=== PATIENT | male | born 1990 | race Caucasian/White ===

== ENCOUNTER 2019-07-28 10:29 | Emergency (ER) | payer BC, SELFPAY ==
[2019-07-28 12:52] LABS: Absolute Lymphocytes (CBC) 1.3 K/uL (0.7-4.9); Basophils % 0.6 % (0-1.3); Hematocrit 48.5 % (39.6-49.0); Lymphocytes % 15.2 % (15.3-44.8); RBC Red Blood Cell Count 5.21 M/uL (4.33-5.43)
[2019-07-28 13:02] LABS: BUN Blood Urea Nitrogen 11 mg/dL (7-18); Bicarbonate 27 mmol/L (21-32); Glucose Level 108 mg/dL (74-106); Potassium 3.9 mmol/L (3.5-5.1); Sodium Level 140 mmol/L (136-145)
[2019-07-28 13:04] LABS: Protime INR 1.02
--- NOTE | 2019-07-28 13:25 | ER ---
Nurse's Notes [facility] Name: Rubén Shaw Age: 29 yrs Sex: Male : 1990 Arrival Date: 07/28/2019 Time: 10:41 Bed 9 Private MD: Diagnosis: Other idiopathic peripheral autonomic neuropathy;Alcohol abuse;Alcohol abuse with intoxication;Alcohol abuse with other alcohol-induced disorder Presentation: 07/28 10:59 Presenting complaint: Patient states: malu feet numb up to doan, happens intermittently iw since a couple months ago, this episode started this morning, feet feel asleep and cold, episodes usually last about 12 hours, denies hx of diabetes. Transition of care: patient was not received from another setting of care. Onset of symptoms was May 2019. Risk Assessment: Do you want to hurt yourself or someone else? Patient reports no desire to harm self or others. Initial Sepsis Screen: Does the patient meet any 2 criteria? No. Patient's initial sepsis screen is negative. Does the patient have a suspected source of infection? No. Patient's initial sepsis screen is negative. Care prior to arrival: None. 10:59 Method Of Arrival: Ambulatory iw 10:59 Acuity: TIN 3 iw Triage Assessment: 13:45 General: Appears in no apparent distress. Behavior is calm, cooperative. iw Historical: - Allergies: 11:02 No Known Allergies; iw - Home Meds: 11:02 None [Active]; iw - PMHx: 11:02 None; iw - PSHx: 11:02 None; iw - Immunization history:: Adult Immunizations not up to date. - Social history:: Smoking status: Patient uses tobacco products, smokes one pack cigarettes per day. - Ebola Screening: : Patient negative for fever greater than or equal to 101.5 degrees Fahrenheit, and additional compatible Ebola Virus Disease symptoms Patient denies exposure to infectious person Patient denies travel to an Ebola-affected area in the 21 days before illness onset No symptoms or risks identified at this time. Screenin:45 Abuse screen: Denies threats or abuse. Denies injuries from another. Nutritional iw screening: No deficits noted. Tuberculosis screening: No symptoms or risk factors identified. Fall Risk IV access (20 points). Assessment: 11:00 General: Appears in no apparent distress. Behavior is calm, cooperative. Neuro: Level iw of Consciousness is awake, alert, obeys commands, Oriented to person, place, time, situation, Moves all extremities. Full function. Neuro: Reports paresthesias in right leg and left leg. Cardiovascular: Patient's skin is warm and dry. Respiratory: Respiratory effort is even, unlabored, Respiratory pattern is regular. GI: No signs and/or symptoms were reported involving the gastrointestinal system. Derm: Skin is intact, is healthy with good turgor. Musculoskeletal: Range of motion: intact in all extremities. 12:45 Reassessment: Patient appears in no apparent distress at this time. Patient and/or iw family updated on plan of care and expected duration. Pain level reassessed. Patient is alert, oriented x 3, equal unlabored respirations, skin warm/dry/pink. 13:40 Reassessment: Patient appears in no apparent distress at this time. Patient and/or iw family updated on plan of care and expected duration. Pain level reassessed. Patient is alert, oriented x 3, equal unlabored respirations, skin warm/dry/pink. Pain: Denies pain. Vital Signs: 11:02 BP 150 / 106; Pulse 77; Resp 16; Temp 97.6(TE); Pulse Ox 98% on R/A; Weight 113.4 kg; iw Height 5 ft. 10 in. (177.80 cm); Pain 0/10; 11:02 Body Mass Index 35.87 (113.40 kg, 177.80 cm) iw ED Course: 10:41 Patient arrived in ED. mr 11:00 Patient has correct armband on for positive identification. iw 11:01 Triage completed. iw 11:02 Arm band placed on. iw 11:54 Yessi Perez, RN is Primary Nurse. iw 11:57 Arturo Fuentes MD is Attending Physician. kdr 12:44 Initial lab(s) drawn, by nc, sent to lab. Inserted saline lock: 20 gauge in left iw antecubital area, using aseptic technique. Blood collected. 13:46 No provider procedures requiring assistance completed. IV discontinued, intact, iw bleeding controlled, No redness/swelling at site. Pressure dressing applied. Administered Medications: No medications were administered Outcome: 13:24 Discharge ordered by . kdr 13:46 Discharged to home ambulatory, with family. iw 13:46 Condition: good 13:46 Discharge instructions given to patient, family, Instructed on discharge instructions, follow up and referral plans. medication usage, Demonstrated understanding of instructions, follow-up care. 13:47 Patient left the ED. iw Signatures: Arturo Fuentes MD MD [facility] Marsha Fletcher Irene, RN RN iw
--- NOTE | 2019-07-28 13:25 | EDPHYS ---
Physician Documentation [facility] Name: Rubén Shaw Age: 29 yrs Sex: Male : 1990 Arrival Date: 07/28/2019 Time: 10:41 Bed 9 Private MD: ED Physician Arturo Fuentes HPI: 07/28 16:36 This 29 yrs old Male presents to ER via Ambulatory with complaints of kdr Numbness. 16:36 The patient's problem is reported as paresthesias, in right lower extremity, in left kdr upper extremity, weakness, that is generalized. Onset: The symptoms/episode began/occurred gradually, This has been intermittent and vague for the past several months. He states that his feet up to just below his knees will feel cold and numb but that the feeling is transient. Duration: The episodes are intermittent. Context: has been occurring intermittently for some months. The symptoms are alleviated by nothing. The symptoms are aggravated by nothing. Associated signs and symptoms: Pertinent positives: weakness. Severity of symptoms: At their worst the symptoms were mild moderate just prior to arrival, in the emergency department the symptoms are unchanged. Patient's baseline: Neuro: alert and fully oriented, Motor: no deficits, Ambulation: walks without assistance, Speech: normal, The patient has a previous history of The patient states that he drinks about a 1/2 liter of rum every day.. The patient has experienced similar episodes in the past, a few times. The patient has not recently seen a physician. Historical: - Allergies: 11:02 No Known Allergies; iw - Home Meds: 11:02 None [Active]; iw - PMHx: 11:02 None; iw - PSHx: 11:02 None; iw - Immunization history:: Adult Immunizations not up to date. - Social history:: Smoking status: Patient uses tobacco products, smokes one pack cigarettes per day. - Ebola Screening: : Patient negative for fever greater than or equal to 101.5 degrees Fahrenheit, and additional compatible Ebola Virus Disease symptoms Patient denies exposure to infectious person Patient denies travel to an Ebola-affected area in the 21 days before illness onset No symptoms or risks identified at this time. ROS: 16:36 Constitutional: Negative for fever, chills, and weight loss, Eyes: Negative for injury, kdr pain, redness, and discharge, Neck: Negative for injury, pain, and swelling, Cardiovascular: Negative for chest pain, palpitations, and edema, Respiratory: Negative for shortness of breath, cough, wheezing, and pleuritic chest pain, Abdomen/GI: Negative for abdominal pain, nausea, vomiting, diarrhea, and constipation, Back: Negative for injury and pain, MS/Extremity: Negative for injury and deformity, Skin: Negative for injury, rash, and discoloration, Psych: Negative for depression, anxiety, suicide ideation, homicidal ideation, and hallucinations, Allergy/Immunology: Negative for hives, rash, and allergies, Endocrine: Negative for neck swelling, polydipsia, polyuria, polyphagia, and marked weight changes, Hematologic/Lymphatic: Negative for swollen nodes, abnormal bleeding, and unusual bruising. 16:36 Neuro: Positive for weakness, Negative for altered mental status, dizziness, gait disturbance, hearing loss, loss of consciousness, seizure activity, speech changes, syncope, near syncope, tinnitus, tremor, visual changes. Exam: 16:36 Constitutional: This is a well developed, well nourished patient who is awake, alert, kdr and in no acute distress. Head/Face: Normocephalic, atraumatic. Eyes: Pupils equal round and reactive to light, extra-ocular motions intact. Lids and lashes normal. Conjunctiva and sclera are non-icteric and not injected. Cornea within normal limits. Periorbital areas with no swelling, redness, or edema. Neck: Trachea midline, no thyromegaly or masses palpated, and no cervical lymphadenopathy. Supple, full range of motion without nuchal rigidity, or vertebral point tenderness. No Meningismus. Chest/axilla: Normal chest wall appearance and motion. Nontender with no deformity. No lesions are appreciated. Cardiovascular: Regular rate and rhythm with a normal S1 and S2. No gallops, murmurs, or rubs. Normal PMI, no JVD. No pulse deficits. Respiratory: Lungs have equal breath sounds bilaterally, clear to auscultation and percussion. No rales, rhonchi or wheezes noted. No increased work of breathing, no retractions or nasal flaring. Abdomen/GI: Soft, non-tender, with normal bowel sounds. No distension or tympany. No guarding or rebound. No evidence of tenderness throughout. Back: No spinal tenderness. No costovertebral tenderness. Full range of motion. Skin: Warm, dry with normal turgor. Normal color with no rashes, no lesions, and no evidence of cellulitis. MS/ Extremity: Pulses equal, no cyanosis. Neurovascular intact. Full, normal range of motion. Neuro: Awake and alert, GCS 15, oriented to person, place, time, and situation. Cranial nerves II-XII grossly intact. Motor strength 5/5 in all extremities. Sensory grossly intact. Cerebellar exam normal. Normal gait. Psych: Awake, alert, with orientation to person, place and time. Behavior, mood, and affect are within normal limits. 16:49 CT study not indicated or reported. Reason for not performing CT: Not done kdr Vital Signs: 11:02 BP 150 / 106; Pulse 77; Resp 16; Temp 97.6(TE); Pulse Ox 98% on R/A; Weight 113.4 kg; iw Height 5 ft. 10 in. (177.80 cm); Pain 0/10; 11:02 Body Mass Index 35.87 (113.40 kg, 177.80 cm) iw MDM: 13:24 Patient medically screened. kdr 16:36 Data reviewed: vital signs, nurses notes, lab test result(s). Counseling: I had a kdr detailed discussion with the patient and/or guardian regarding: the historical points, exam findings, and any diagnostic results supporting the discharge/admit diagnosis, lab results, the need for outpatient follow up. 07/28 12:08 Order name: CBC with Diff; Complete Time: 13:19 kdr 07/28 12:08 Order name: Chem 7; Complete Time: 13:19 kdr 07/28 12:08 Order name: PT-INR; Complete Time: 13:19 kdr 07/28 12:08 Order name: ETOH Level; Complete Time: 13:19 kdr 07/28 12:08 Order name: Urine Dipstick-Ancillary (obtain specimen); Complete Time: 13:29 kdr Administered Medications: No medications were administered Disposition: 07/28/19 13:24 Discharged to Home. Impression: Other idiopathic peripheral autonomic neuropathy, Alcohol abuse, Alcohol abuse with intoxication, Alcohol abuse with other alcohol-induced disorder. - Condition is Stable. - Discharge Instructions: Chemical Dependency, Peripheral Neuropathy, Alcohol Intoxication, [id number], Alcohol Abuse and Nutrition, Alcohol Withdrawal, [id number], What You Need to Know About Alcohol Abuse and Dependence, Youth. - Medication Reconciliation Form, Thank You Letter, Work release form form. - Follow up: Private Physician; When: 1 - 2 days; Reason: If symptoms return, Further diagnostic work-up, Recheck today's complaints, Continuance of care, Re-evaluation by your physician. - Problem is an ongoing problem. - Symptoms are unchanged. Signatures: Dispatcher [employer] EDHI Arturo Fuentes MD MD kdr Yessi Perez RN RN iw Corrections: (The following items were deleted from the chart) 13:47 13:24 07/28/2019 13:24 Discharged to Home. Impression: Other idiopathic peripheral iw autonomic neuropathy; Alcohol abuse; Alcohol abuse with intoxication; Alcohol abuse with other alcohol-induced disorder. Condition is Stable. Forms are Medication Reconciliation Form, Thank You Letter, Antibiotic Education, Prescription Opioid Use. Follow up: Private Physician; When: 1 - 2 days; Reason: If symptoms return, Further diagnostic work-up, Recheck today's complaints, Continuance of care, Re-evaluation by your physician. Problem is an ongoing problem. Symptoms are unchanged. kdr
[2019-07-28 13:54] VITALS: BP 150/106; TEMP 97.6; O2SAT 98
== END 2019-07-28 13:47 | disposition home or self-care (01) ==
LOC: ER 10:29
DX: G90.09 Other idiopathic peripheral autonomic neuropathy (principal); F10.188 Alcohol abuse with other alcohol-induced disorder; F17.210 Nicotine dependence, cigarettes, uncomplicated
CPT/HCPCS: 36415; 80048; 80320; 85025; 85610; 99283

== ENCOUNTER 2024-08-25 13:19 | Emergency (ER) | payer SELFPAY ==
[2024-08-25 15:15] LABS: Absolute Basophils 0.1 K/uL (0-0.5); Absolute Eosinophils 0.1 K/uL (0-0.5); Absolute Lymphocytes (CBC) 2.3 K/uL (0.7-4.9); Absolute Monocytes 1.1 K/uL (0.1-1.3); Absolute Neutrophil 6.2 K/uL (1.8-8.0); Basophils % 1.2 % (0-1.3); Eosinophils % 0.9 % (0-4.4); Hematocrit 44.5 % (39.6-49.0); Hemoglobin 15.3 g/dL (13.6-17.9); Lymphocytes % 23.5 % (15.3-44.8); MCH 35.5 pg (27.0-35.0); MCHC 34.4 g/dL (32.0-36.0); MCV 103.2 fL (80-100); MPV 8.3 fL (7.6-11.3); Monocytes % 11.1 % (3.3-12.3); Neutrophils % 63.3 % (41.7-73.7); Platelets 142 thou/uL (152-406); RBC Red Blood Cell Count 4.31 M/uL (4.33-5.43)
[2024-08-25 15:28] LABS: Sqamous Epithelial <5 /HPF (None Seen); Urine Bacteria None Seen /HPF (<20); Urine Bilirubin 4+ (Over) (Negative); Urine Blood Negative (Negative); Urine Clarity Extremely Turbid (Clear); Urine Color Dark-Orange (Yellow); Urine Crystals Unidentified Few /HPF (None Seen); Urine Culture Reflex Order NOT NEEDED; Urine Glucose NEGATIVE (Negative); Urine Ketones NEGATIVE (Negative); Urine Microscopic Reflex YN ORDER UMIC; Urine Mucus 4+ /HPF (None Seen); Urine Nitrite NEGATIVE (Negative); Urine Protein 1+ (Negative); Urine RBC <5 /HPF (None Seen); Urine Urobilinogen 4+ (Over) (Normal)
[2024-08-25 15:49] LABS: Albumin 2.8 g/dL (3.4-5.0); Albumin/Globulin Ratio 0.7 (1.1-1.8); Anion Gap 12.7 mEq/L (5.0-15.0); Protein, Total 6.8 g/dL (6.4-8.2)
[2024-08-25 15:51] LABS: Potassium 5.7 mEq/L (3.5-5.1)
[2024-08-25 15:52] LABS: Bilirubin Total 13.2 mg/dL (0.2-1.0)
--- NOTE | 2024-08-25 16:01 | RAD REPORT ---
EXAMINATION: CT ABDOMEN AND PELVIS WITH CONTRAST CLINICAL INDICATION: Abdominal pain TECHNIQUE: CT abdomen and pelvis was performed, after the administration of 100 cc Isovue-300.. Sagit hayden and coronal reconstructions were obtained. One or more of the following dose reduction techniques were used: Automated exposure control, adjustment of the mA and kV according to patient si ze, and iterative reconstruction. Unless otherwise specified, incidental findings do not require dedicated imaging follow-up. [id number]. Oral contrast was not given which limits evaluation of bowel and appendix. COMPARISON: none FINDINGS: Small left pleural effusion. The liver is enlarged. Marked inhomogeneity of the liver is present containing low-density areas. IVC and hepatic veins are narrowed. Tiny hepatic cyst. The portal vein is patent. Small amount of ascites abdomen. [id number] amount of ascites pelvis. Mild nodularity greater omentum. Spleen, pancreas, adrenals and kidneys unremarkable Normal appendix. No evidence of diverticulitis. Small bilateral hernias : IMPRESSION: Hepatomegaly. 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 Small amount of ascites abdomen. Small to moderate amount of ascites pelvis. Mild nodularity greater omentum.
[2024-08-25 16:52] LABS: PTT, Activated Partial Thromb 34.2 SECONDS (24.3-36.9); Protime INR 1.63
--- NOTE | 2024-08-25 17:35 | RAD REPORT ---
EXAM: Right upper quadrant ultrasound. CLINICAL HISTORY: Abdominal pain COMPARISON: CT August 25, 2024 FINDINGS: A gallstone is not seen.. Small amount of gallbladder sludge is present. Mild gallbladder wall thickening. Biliary tree normal caliber Hepatomegaly with heterogeneous echotexture. Hepatopedal flow IMPRESSION: Mild gallbladder sludge Hepatomegaly with heterogeneous echotexture. Mild gallbladder wall thickening may be secondary to hypoalbuminemia or acalculus cholecystitis. Please refer to the CT report for additional findings
--- NOTE | 2024-08-25 17:50 | EDPHYS ---
Physician Documentation [facility] Name: Rubén Shaw Age: 34 yrs Sex: Male : 1990 Arrival Date: 08/25/2024 Time: 13:19 Bed 15 Private MD: ED Physician David Garcia HPI: 08/25 13:39 This 34 yrs old Male presents to ER via Ambulatory with complaints of abdominal pain. sb4 13:39 Patient reports right side abdominal pain x 2 days. States that he is a daily alcohol sb4 drinker, but has cut back over the past few months. States that he noticed his eyes started looking yellow a few months ago. He states the pain in his belly was worse 2 days ago but it has persisted. He additionally endorses nausea and vomiting. Denies any prior diagnoses of chronic liver disease. Historical: - Allergies: 13:32 No Known Allergies; aa5 - Home Meds: 13:32 None [Active]; aa5 - PMHx: 13:32 None; aa5 - PSHx: 13:32 None; aa5 - Immunization history:: Adult Immunizations unknown. - Infectious Disease History:: Denies. - Social history:: Smoking status: Patient reports the use of cigarette tobacco products, Patient uses alcohol, on a daily basis. "2-3 drinks a day/liquor". ROS: 13:39 Constitutional: Negative for fever, chills, and weight loss, sb4 13:39 Eyes: Positive for icterus, 13:39 Abdomen/GI: Positive for abdominal pain, nausea and vomiting, 13:39 All other systems are negative, Exam: 13:39 Constitutional: This is a well developed, well nourished patient who is awake, alert, sb4 and in no acute distress. Head/Face: Normocephalic, atraumatic. ENT: Mucous membranes moist. Cardiovascular: Regular rate and rhythm with a normal S1 and S2. Respiratory: No increased work of breathing, no retractions or nasal flaring. 13:39 Eyes: Sclera: icterus, is present, 13:39 Abdomen/GI: Inspection: distension, that is mild, Bowel sounds: normal, Palpation: abdomen is soft and non-tender, 17:49 Skin: Appearance: Color: jaundiced, sb4 Vital Signs: 13:30 BP 153 / 96; Pulse 96; Resp 18 S; Temp 98.4(TE); Pulse Ox 96% on R/A; Weight 90.72 kg aa5 (R); Height 5 ft. 10 in. (R); 16:00 BP 122 / 90; Pulse 91; Resp 16; Pulse Ox 96% ; me1 17:00 BP 120 / 85; Pulse 79; Resp 17; Pulse Ox 97% ; me1 18:00 BP 113 / 77; Pulse 82; Resp 16; Pulse Ox 97% ; me1 19:05 BP 155 / 100; Pulse 100; Resp 18; Temp 98(O); Pulse Ox 99% on R/A; Pain 3/10; rg5 22:00 BP 141 / 89; Pulse 96; Resp 18; Pulse Ox 97% on R/A; rg5 13:30 Body Mass Index 28.70 (90.72 kg, 177.8 cm) aa5 19:05 Pain Scale: Adult rg5 MDM: 13:31 Medical Screening Exam initiated sb4 17:50 Data reviewed: vital signs, nurses notes, lab test result(s), radiologic studies, I sb4 have discussed the patient's presentation/case with the attending Emergency Department Physician;. Counseling: I had a detailed discussion with the patient and/or guardian regarding the historical points, exam findings, and any diagnostic results supporting the discharge/admit diagnosis, lab results, radiology results, the need to transfer to another facility. 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 sb4 Will transfer to [facility] in the [facility] for hepatology. 19:38 Management of patient was discussed with the following: Hospitalist: Dr. Pena, [facility] hospitalist at [facility], accepts patient for transfer. 08/25 13:37 Order name: CBC with Diff; Complete Time: 15:17 [facility] 08/25 13:37 Order name: CMP; Complete Time: 15:52 [facility] 08/25 13:37 Order name: Lipase; Complete Time: 15:52 [facility] 08/25 13:37 Order name: Urinalysis w/ reflexes; Complete Time: 15:28 [facility] 08/25 15:59 Order name: PT-INR; Complete Time: 16:53 [facility] 08/25 15:59 Order name: Ptt, Activated; Complete Time: 16:53 sb4 08/25 16:00 Order name: Hepatitis Panel; Complete Time: 18:07 sb4 08/25 16:01 Order name: Magnesium; Complete Time: 16:24 sb4 08/25 16:54 Order name: BMP: repeat bc hemolysis; Complete Time: 19:32 sb4 08/25 18:17 Order name: AMMONIA; Complete Time: 19:22 sb4 08/25 13:37 Order name: CT Abd/Pelvis - IV Contrast Only; Complete Time: 16:03 sb4 08/25 16:12 Order name: Abdomen Limited US; Complete Time: 17:37 sb4 08/25 13:37 Order name: IV Saline Lock; Complete Time: 15:06 sb4 08/25 13:37 Order name: Labs collected and sent; Complete Time: 15:06 sb4 Administered Medications: 19:15 Drug: Famotidine IVP 20 mg IVP once; dilute with 10 mL 0.9% NaCl; give over 2 minutes rg5 Route: IVP; Site: right antecubital; 20:15 Follow up: Response: No adverse reaction rg5 19:16 Drug: Nicoderm CQ Transdermal Patch 21 mg/24 hr 1 patches Transdermal once {Note: right rg5 deltoid.} Route: Transdermal; Site: affected area; Disposition Summary: 08/25/24 17:49 Transfer Ordered Notes: Transfer Location: [facility] sb4 Reason: Higher level of care sb4 Condition: Serious sb4 Problem: new sb4 Symptoms: are unchanged sb4 Accepting Physician: Dr. Pena(08/25/24 22:27) rg5 Diagnosis - Hepatic failure, unspecified without coma sb4 - Budd-Chiari syndrome sb4 Forms: - Medication Reconciliation Form sb4 - SBAR form sb4 Signatures: Dispatcher [employer] EDMS Mary Beth Cespedes RN RN aa5 Chrissy Licona PAHermelinda PAHermelinda sb4 Aurelio Phillips RN RN rg5 Corrections: (The following items were deleted from the chart) 13:37 13:37 CBC+H.LAB.BRZ ordered. EDMS EDMS 13:37 13:37 COMPREHENSIVE METABOLIC PANEL+C.LAB.BRZ ordered. EDMS EDMS 13:37 13:37 LIPASE+C.LAB.BRZ ordered. EDMS EDMS 13:37 13:37 Urinalysis+U.LAB.BRZ ordered. EDMS EDMS 13:37 13:37 Abdomen Pelvis W Con+CT.RAD.BRZ ordered. EDMS EDMS 16:12 16:12 Abdomen Limited+US.RAD.BRZ ordered. EDMS EDMS 16:48 16:37 Liver Only+US.RAD.BRZ ordered. EDMS EDMS 16:54 16:54 BASIC METABOLIC PANEL+C.LAB.BRZ ordered. EDMS EDMS 17:17 13:39 Abdomen/GI: Inspection: abdomen appears normal, Bowel sounds: normal, Palpation: sb4 abdomen is soft and non-tender, sb4 17:50 13:39 Constitutional: This is a well developed, well nourished patient who is awake, sb4 alert, and in no acute distress. Head/Face: Normocephalic, atraumatic. ENT: Mucous membranes moist. Cardiovascular: Regular rate and rhythm with a normal S1 and S2. Respiratory: No increased work of breathing, no retractions or nasal flaring. Skin: Warm, dry with normal turgor. Normal color with no rashes, no lesions, and no evidence of cellulitis. sb4 19:38 17:49 hepatology sb4 sb4 22:27 19:38 Dr. Pena sb4 rg5
--- NOTE | 2024-08-25 17:50 | ER ---
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 Pt reports nausea/vomiting. Pt reports he drinks ETOH daily. Coronavirus screen: At this time, the client does not indicate any symptoms associated with coronavirus-19. Ebola Screen: Patient denies travel to an Ebola-affected area in the 21 days before illness onset. Initial Sepsis Screen: Does the patient meet any 2 criteria? No. Patient's initial sepsis screen is negative. Does the patient have a suspected source of infection? No. Patient's initial sepsis screen is negative. Risk Assessment: Do you want to hurt yourself or someone else? Patient reports no desire to harm self or others. Onset of symptoms was August 2024. 13:30 Method Of Arrival: Ambulatory aa5 13:30 Acuity: TIN 3 aa5 Historical: - Allergies: 13:32 No Known Allergies; aa5 - Home Meds: 13:32 None [Active]; aa5 - PMHx: 13:32 None; aa5 - PSHx: 13:32 None; aa5 - Immunization history:: Adult Immunizations unknown. - Infectious Disease History:: Denies. - Social history:: Smoking status: Patient reports the use of cigarette tobacco products, Patient uses alcohol, on a daily basis. "2-3 drinks a day/liquor". Screenin:00 [facility] ED Fall Risk Assessment (Adult) History of falling in the last 3 months, me1 including since admission No falls in past 3 months (0 pts) Confusion or Disorientation No (0 pts) Intoxicated or Sedated No (0 pts) Impaired Gait No (0 pts) Mobility Assist Device Used No (0 pt) Altered Elimination No (0 pt) Score/Fall Risk Level 0 - 2 = Low Risk Maintained a safe environment, Provided non-skid footwear, Hourly rounding (assess needs \\T\\ fall precautionary measures) done. Abuse screen: Denies threats or abuse. Nutritional screening: No deficits noted. Tuberculosis screening: No symptoms or risk factors identified. Assessment: 16:00 General: Appears comfortable, well groomed, well developed, well nourished, Behavior is me1 calm, cooperative, appropriate for age, Reports "The right side of my stomach was hurting all day Sunday and now it's only when I touch it". Pt reports nausea/vomiting. Pt reports he drinks ETOH daily. Pain: Complains of pain in right upper quadrant Pain does not radiate. Pain currently is 5 out of 10 on a pain scale. Quality of pain is described as dull, Pain began gradually, Is continuous. Neuro: Level of Consciousness is awake, alert, obeys commands, Oriented to person, place, time, situation, Appropriate for age. Cardiovascular: Patient's skin is warm and dry. Respiratory: Airway is patent Respiratory effort is even, unlabored, Respiratory pattern is regular, symmetrical. GI: Abdomen is round Bowel sounds present X 4 quads. Abdomen is tender to palpation in right upper quadrant. : No signs and/or symptoms were reported regarding the genitourinary system. EENT: No signs and/or symptoms were reported regarding the EENT system. Derm: Skin is intact, is healthy with good turgor, Skin is jaundiced. Musculoskeletal: No signs and/or symptoms reported regarding the musculoskeletal system. 19:52 General: Pt accepted to [facility], transfer center will call back to assign a bed. . vc1 20:25 Reassessment: Patient and/or family updated on plan of care and expected duration. Pain rg5 level reassessed. Patient is alert, oriented x 3, equal unlabored respirations, skin warm/dry/pink. 21:36 Reassessment: Patient and/or family updated on plan of care and expected duration. Pain rg5 level reassessed. Patient is alert, oriented x 3, equal unlabored respirations, skin warm/dry/pink. 22:00 Reassessment: Patient and/or family updated on plan of care and expected duration. Pain rg5 level reassessed. Patient is alert, oriented x 3, equal unlabored respirations, skin warm/dry/pink. Patient states symptoms have improved. Vital Signs: 13:30 BP 153 / 96; Pulse 96; Resp 18 S; Temp 98.4(TE); Pulse Ox 96% on R/A; Weight 90.72 kg aa5 (R); Height 5 ft. 10 in. (R); 16:00 BP 122 / 90; Pulse 91; Resp 16; Pulse Ox 96% ; me1 17:00 BP 120 / 85; Pulse 79; Resp 17; Pulse Ox 97% ; me1 18:00 BP 113 / 77; Pulse 82; Resp 16; Pulse Ox 97% ; me1 19:05 BP 155 / 100; Pulse 100; Resp 18; Temp 98(O); Pulse Ox 99% on R/A; Pain 3/10; rg5 22:00 BP 141 / 89; Pulse 96; Resp 18; Pulse Ox 97% on R/A; rg5 13:30 Body Mass Index 28.70 (90.72 kg, 177.8 cm) aa5 19:05 Pain Scale: Adult rg5 ED Course: 13:22 Patient arrived in ED. ra3 13:29 Chrissy Licona PA-C is PHCP. sb4 13:29 David Garcia MD is Attending Physician. sb4 13:30 Arm band placed on. aa5 13:31 Triage completed. aa5 15:06 CBC with Diff Sent. cc6 15:06 CMP Sent. cc6 15:07 Lipase Sent. cc6 15:07 Urinalysis w/ reflexes Sent. cc6 15:07 Inserted saline lock: 20 gauge in right antecubital area, using aseptic technique. cc6 Blood collected. Flushed with 10 mL NS. 15:07 Initial lab(s) drawn, by md, sent to lab. cc6 15:32 CT Abd/Pelvis - IV Contrast Only In Process Unspecified. EDMS 16:00 Patient has correct armband on for positive identification. Bed in low position. Call me1 light in reach. Side rails up X2. Provided Education on: POC. Verbalized understanding. . Client placed on continuous cardiac and pulse oximetry monitoring. NIBP monitoring applied. Pulse ox on. NIBP on. 16:00 No provider procedures requiring assistance completed. me1 16:14 Shannan Green, RN is Primary Nurse. me1 16:30 PT-INR Sent. me1 16:30 Ptt, Activated Sent. me1 16:30 Hepatitis Panel Sent. me1 17:00 Abdomen Limited US In Process Unspecified. EDMS 18:56 initiated transfer to [facility]. bd 22:26 Patient transferred, IV remains in place. rg5 Administered Medications: 19:15 Drug: Famotidine IVP 20 mg IVP once; dilute with 10 mL 0.9% NaCl; give over 2 minutes rg5 Route: IVP; Site: right antecubital; 20:15 Follow up: Response: No adverse reaction rg5 19:16 Drug: Nicoderm CQ Transdermal Patch 21 mg/24 hr 1 patches Transdermal once {Note: right rg5 deltoid.} Route: Transdermal; Site: affected area; Medication: 16:00 VIS not applicable for this client. me1 Outcome: 17:49 ER care complete, transfer ordered by . sb4 22:26 Transferred by ground EMS to [facility], rg5 22:26 Condition: stable 22:26 Discharge instructions given to EMS, Instructed on discharge instructions, 22:27 Patient left the ED. rg5 Signatures: Dispatcher [employer] EDMS Radha Molina Mary Beth Cespedes, RN RN aa5 Renetta Goncalves RN RN vc1 Chrissy Licona PA-C PA-C sb4 Shannan Green RN RN me1 Isabell Hill ra3 Aurelio Phillips, RN RN rg5 Bethany Richardson cc6 Corrections: (The following items were deleted from the chart) 16:32 13:30 Chief complaint: Patient states: "The right side of my stomach was hurting all me1 day Sunday and now it's only when I touch it". Pt reports nausea/vomiting. Pt reports he drinks ETOH daily aa5
[2024-08-25 18:07] LABS: HBsAG Nonreactive Report Report; Hepatitis B Core IgM Nonreactive (Nonreactive); Hepatitis B surface AG Interp. Nonreactive (Nonreactive); Hepatitis C Virus Ab Nonreactive (Nonreactive)
[2024-08-25] MEDS ORDERED: FAMOTIDINE 20 MG/2 ML VIAL IV ONE (19:10)
[2024-08-25] MEDS ORDERED: NICOTINE 21 MG/PAT TD ONE (19:10)
[2024-08-25 19:22] LABS: Anion Gap 13.5 mEq/L (5.0-15.0); Potassium 3.5 mEq/L (3.5-5.1)
[2024-08-26 00:38] VITALS: TEMP 98
[2024-08-26 00:40] VITALS: BP 141/89; O2SAT 97
== END 2024-08-25 22:27 | disposition short-term general hospital (02) ==
LOC: ER 13:19
DX: K72.90 Hepatic failure, unspecified without coma (principal); I82.0 Budd-Chiari syndrome; Z72.0 Tobacco use
CPT/HCPCS: 36415; 74177; 76705; 80048; 80053; 80074; 81001; 82140; 83690; 83735; 85025; 85610; 85730; 96374; 99285; Q9967